=== PATIENT | male | born 1945 | race Caucasian/White ===

== ENCOUNTER → 2016-08-17 | Outpatient (CLI) | payer OTHER ==
[~2016-08-17] MED LIST: ALLOPURINOL 30300 M2 PO; ATORVASTATIN CA40 MG PO; LEVAQUIN 750 M750 MG PO; LISINOPRIL20 MG PO; LORTAB 5-325 M1 EACH PO; ZOFRAN ODT4 MG PO
== END ==
LOC: RAD 08:58
DX: J93.9 Pneumothorax, unspecified (principal)

== ENCOUNTER 2020-12-14 07:30 | Emergency (ER) | payer OTHER ==
[~2020-12-14] VITALS: Ht 182.9 cm; Wt 93.0 kg
[2020-12-14] MEDS ORDERED: LISINOPRIL10 MG PO (07:48)
[2020-12-14 08:08] LABS: URINE BILIRUBIN NEGATIVE (Negative); URINE BLOOD 3+ (Negative); URINE CLARITY CLOUDY; URINE COLOR YELLOW; URINE GLUCOSE-RANDOM* NEGATIVE (Negative); URINE KETONES NEGATIVE (Negative); URINE LEUKOCYTES-REFLEX NEGATIVE (Negative); URINE NITRITE-REFLEX NEGATIVE (Negative); URINE PROTEIN (DIPSTICK) TRACE (Negative); URINE SPECIFIC GRAVITY 1.025 (1.005-1.035); URINE UROBILINOGEN 0.2 E.U./dl (0.2-1.0)
[2020-12-14 08:11] LABS: BASOPHILS 0.4 % (0.0-2.0); EOSINOPHILS 1.6 % (0.0-3.0); HEMATOCRIT 42.3 % (42.0-52.0); HEMOGLOBIN 14.5 gm/dL (14.0-18.0); LYMPHOCYTES 11.4 % (24.0-44.0); MCH 35.6 pg (26.0-34.0); MCHC 34.3 g/dL (28.0-37.0); MCV 103.6 fL (80.0-100.0); PLATELET COUNT 174 thou/uL (150-400); POLYS 78.6 % (36.0-66.0); RBC 4.08 mil/uL (4.50-6.00); RDW 13.7 % (10.5-14.5); WBC 7.7 thou/uL (4.0-11.0)
[2020-12-14 08:14] LABS: CALCIUM 8.7 mg/dL (8.5-10.1); CREATININE 1.3 mg/dL (0.7-1.3); POTASSIUM 4.3 mmol/L (3.5-5.1)
[2020-12-14 08:20] LABS: ALBUMIN 3.8 g/dL (3.4-5.0); TOTAL BILIRUBIN 0.9 mg/dL (0.2-1.0); TOTAL PROTEIN 6.9 g/dL (6.4-8.2)
[2020-12-14 08:26] LABS: BACTERIA-REFLEX None Seen /HPF (None Seen); CRYSTALS None Seen /LPF (None Seen); SQUAMOUS None Seen /LPF (0-3); URINE RBC >20 Many /HPF (NONE SEEN); URINE WBC-REFLEX None Seen /HPF (0-5)
[2020-12-14] MEDS ORDERED: FLOMAX0.4 MG PO (09:20)
[2020-12-14] MEDS ORDERED: NORCO7.5 PO (09:20)
[2020-12-14 09:34] VITALS: BP 143/66
== END 2020-12-14 09:37 | disposition home or self-care (01) ==
LOC: ER 07:30
PROVIDERS: Emergency Medicine
DX: N20.1 Calculus of ureter (principal); I10 Essential (primary) hypertension; E78.00 Pure hypercholesterolemia, unspecified; M10.9 Gout, unspecified; Z87.442 Personal history of urinary calculi